=== PATIENT | male | born 1975 | race Two or more races ===

== ENCOUNTER 2024-08-16 23:02 | Emergency (ER) | payer BC ==
[~2024-08-16] VITALS: Ht 177.8 cm; Wt 93.0 kg
[2024-08-17] MEDS ORDERED: TETANUS & DIPHTHERIA TOX,ADULT 0.5 ML VIAL IM STA (00:12)
[2024-08-17] MEDS ORDERED: CEPHALEXIN500 MG PO (03:25)
[2024-08-17] MEDS ORDERED: KETO10TA2 PO (03:25)
== END 2024-08-17 03:30 ==
LOC: ER 23:04
DX: S01.81XA Laceration without foreign body of other part of head, initial encounter (principal); S05.91XA Unspecified injury of right eye and orbit, initial encounter; W19.XXXA Unspecified fall, initial encounter; Y93.89 Activity, other specified; Y92.89 Other specified places as the place of occurrence of the external cause; Y99.8 Other external cause status
CPT/HCPCS: 12011; 70450; 70480; 90471; 90714; 96372; J1670